=== PATIENT | female | born 1990 | race Caucasian/White ===

== ENCOUNTER 2017-05-31 13:17 | Emergency (ER) | payer MEDICAID ==
[~2017-05-31] VITALS: Ht 165.1 cm; Wt 48.8 kg
[2017-05-31 15:46] LABS: BASOPHIL % 0.4 % (0-2); PLATELET COUNT 342 x10^3mcL (130-400)
[2017-05-31 15:54] LABS: RED CELL DISTRIBUTION WIDTH 17.7 % (11.5-14.5)
[2017-05-31 16:13] LABS: microscopic required? NO
[2017-05-31 16:20] VITALS: BP 104/89
[2017-05-31 16:30] LABS: urine erythrocyte NEGATIVE (NEGATIVE)
== END 2017-05-31 16:20 | disposition home or self-care (01) ==
LOC: ED 13:17
PROVIDERS: Emergency Medicine Emergency Medical Services
DX: O20.0 Threatened abortion (principal); Z3A.01 Less than 8 weeks gestation of pregnancy
CPT/HCPCS: 36415